=== PATIENT | male | born 1980 | race Caucasian/White ===

== ENCOUNTER 2022-08-06 08:01 | Emergency (ER) | payer OTHER, SELFPAY ==
--- NOTE | ~2022-08-06 | XR_ITS ---
XR chest 2V DATE: 08/06/2022 08:29 INDICATION: Cough, congestion TECHNIQUE: PA and lateral views COMPARISON: None FINDINGS: Normal heart size. No hilar or mediastinal enlargement. No pulmonary infiltrate or consolid ation, pleural effusion or pulmonary vascular congestion or pneumothorax. IMPRESSION: No active cardiopulmonary disease Reviewed, dictated and finalized at location A.
[2022-08-06 08:10] VITALS: BP 143/71; PULSE 81; RESP 16; TEMP 36.6; O2SAT 100
--- NOTE | 2022-08-06 08:21 | ED.URI ---
HPI - URI/Sore Throat General Chief Complaint: Upper Respiratory Infection Stated Complaint: cough, rib pain Time Seen by Provider: 08/06/22 08:14 Source: patient and RN notes reviewed Mode of arrival: ambulatory Limitations: no limitations History of Present Illness HPI Narrative: Patient presents today with an 8-9 day history of cough, congestion. He has now developed posterior rib pain, shortness of breath exertion. Cough is productive with yellow/brown sputum. Denies fever. During the course of his illness, he has had 2 telemedicine visits. During these 2 visits he has been placed on Claritin, Flonase, and albuterol inhaler, and a prednisone taper which he finished this morning. He does not report much relief with these interventions. Denies history of asthma or COPD. Related Data Home Medications Medication Instructions Recorded Confirmed albuterol sulfate 90 mcg/actuation inhalation 08/06/22 aerosol inhaler fluticasone propionate 50 intranasal 08/06/22 mcg/actuation nasal spray,suspension ibuprofen 600 mg tablet mg 08/06/22 Allergies Allergy/AdvReac Type Severity Reaction Status Date / Time No Known Allergies Allergy Verified 08/06/22 08:19 Review of Systems Review of Systems: CONSTITUTIONAL: Denies body aches, fever, chills, or sweats. EYES: Denies visual changes, redness, or discharge. ENT: Denies rhinorrhea, sore throat, or otalgia.+ congestion CARDIOVASCULAR: Denies chest pain, palpitations, or edema. RESPIRATORY: + cough, shortness of breath, rib pain GASTROINTESTINAL: Denies abdominal pain, nausea, vomiting, or diarrhea. GENITOURINARY: Denies dysuria or hematuria. SKIN: Denies rash, itching, or wounds. MUSCULOSKELETAL: Denies back pain, joint pain, or myalgia. NEUROLOGIC: Denies headache, numbness, tingling, or weakness. PSYCH: Denies depression or anxiety. [facility] Family History Family History Mother Carcinoma of colon Social History Social History Smoking status: Never smoker Alcohol intake: current Comments At time of signature, I have reviewed and agree with nursing past medical, surgical, social and family history unless otherwise noted. Please see nursing chart for further information. There is no relevant family history pertinent to the presenting complaint Exam Narrative: GENERAL: Well-appearing, well-nourished, and in no acute distress. HEAD: Normocephalic, atraumatic. EYES: EOMI. No redness or drainage. Conjunctivae normal. ENT: Mucous membranes pink and moist. Nares clear. No rhinorrhea. TMs normal bilaterally. Throat normal. Uvula midline. NECK: Normal AROM. Supple. No lymphadenopathy. CHEST: No respiratory distress. Diminished in the bilateral bases, otherwise clear. HEART: Regular rate and rhythm. No murmur appreciated. EXTREMITIES: Normal range of motion. No edema. SKIN: Warm, dry, no rash. Capillary refill normal. Normal skin turgor. NEURO: No focal deficits. Alert and oriented x3. Gait steady. PSYCH: Normal affect. No signs of depression or anxiety. Course Course Level of Care: Express Care Visit Vital Signs Vital signs: Vital Signs Temperature 98 F 08/06/22 08:10 Pulse Rate 81 08/06/22 08:10 Respiratory Rate 16 08/06/22 08:10 Blood Pressure 143/71 H 08/06/22 08:10 Pulse Oximetry 100 08/06/22 08:10 Temperature 98 F 08/06/22 08:10 Pulse Rate 81 08/06/22 08:10 Respiratory Rate 16 08/06/22 08:10 Blood Pressure 143/71 H 08/06/22 08:10 Pulse Oximetry 100 08/06/22 08:10 Reviewed. Pt has been instructed to follow up with his PCP regarding his elevated blood pressure today. MDM - URI/Sore Throat MDM Narrative Medical decision making narrative: Chest x-ray negative. Will treat patient with Augmentin. Anticipatory guidance given. Differential Diagnosis Differential carlos
== END 2022-08-06 08:43 | disposition home or self-care (01) ==
PROVIDERS: Emergency Provider Nurse Practitioner
DX: R09.81 Nasal congestion (principal); R05.1 Acute cough
CPT/HCPCS: 71046; 99213; G0463